=== PATIENT | male | born 1980 ===

== ENCOUNTER 2020-01-09 15:09 | Emergency (ER) | payer SELFPAY | END 2020-01-09 15:32 | disposition left against medical advice (07) | LOC: ER 16:31 | DX: Z53.21 Procedure and treatment not carried out due to patient leaving prior to being seen by health care provider (principal) | CPT/HCPCS: 99281 ==

== ENCOUNTER 2020-03-03 18:13 | Emergency (ER) | payer SELFPAY ==
[2020-03-03 18:21] VITALS: BP 139/81; PULSE 98; RESP 20; TEMP 36.8; O2SAT 97; BMI 25.7
--- NOTE | 2020-03-03 18:30 | ED_ITS ---
HPI - Male Genitourinary General: Chief complaint: Urogenital-Male Stated complaint: kidney pain/possibly stone Time Seen by Provider: 03/03/20 18:25 Source: patient Mode of arrival: ambulatory Limitations: no limitations History of Present Illness: HPI Narrative: Patient comes in today with complaints of left flank pain starting this afternoon. Patient was unable to control the pain. 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 Patient states his last kidney stone was over a year ago. Patient denies any routine medications or chronic medical problems. Location: left flank Review of Systems General: Reports: 10 or more systems reviewed and unremarkable except in HPI and below : Reports: flank pain Physical Exam Const: COMMON NORMALS: no acute distress and patient oriented x3 GENERAL APPEARANCE: cooperative HENMT: COMMON NORMALS: normocephalic and Normal external nose present HEAD & SCALP: normal to inspection and normocephalic NOSE: Normal external nose present MOUTH: Normal oral and palatal mucosa present THROAT: posterior oropharynx normal Eye: GENERAL EYE: appearance normal, both eyes and all related structures Neck/C-Spine: COMMON NORMALS: full ROM Lymph: LYMPHATIC: no lymphadenopathy noted Chest: COMMONS NORMALS: normal inspection of the chest Resp: COMMON NORMALS: normal respiratory effort EFFORT & INSPECTION: Yes able to speak in complete sentences Cardio: COMMON NORMALS: regular rate and regular rhythm RATE: regular rate RHYTHM: regular rhythm GI: COMMON NORMALS: non-tender : BLADDER/KIDNEY EXAM: Yes CVA tenderness on the left Back/Pelvis: COMMON NORMALS: thoracic and lumbar spine normal to inspection GENERAL BACK: Yes CVA tenderness Extremity: COMMON NORMALS: normal to inspection Neuro: COMMON NORMALS: patient oriented x3 and moves all extremities Psych: COMMON NORMALS: mental status grossly normal and cooperative Skin: COMMON NORMALS: no rashes or lesions noted GENERAL SKIN EXAM: no rashes or lesions noted Course Vital Signs: Vital signs: Vital Signs Temperature 98.7 F 03/03/20 19:01 Pulse Rate 88 03/03/20 19:01 Respiratory Rate 22 H 03/03/20 19:11 Blood Pressure 124/71 03/03/20 19:01 Pulse Oximetry 96 03/03/20 19:11 MDM - Male MDM Narrative: Medical decision making narrative: Patient came in today with left flank pain radiating into the groin. Patient does have a history of kidney stones. On exam patient appears to be in pain. Respirations were even lungs are clear to auscultation. Skin is warm and dry. Differential diagnosis includes but not limited to renal colic, constipation, dehydration. Patient was medicated with 100 mcg of fentanyl and ketorolac for pain. Patient was covered with ondansetron and Benadryl for history of opiate itching. Patient did have relief of discomfort. Patient appears well otherwise. Laboratory values are unremarkable. Patient had blood in the urine. CT scan of the abdomen and pelvis noted no hydronephrosis or obstructing kidney stones. Patient does have multiple stones in bilateral kidneys. Reviewed exam with patient with recommendations for treatment and follow-up. Patient reported understanding agreed to plan. Lab Data: Labs: Lab Results 03/03/20 03/03/20 03/03/20 Range/Units 18:31 18:56 18:56 WBC 6.8 (4.0-10.0) 10^3/ uL RBC 4.54 (4.1-5.3) 10^6/u L Hgb 14.1 (11.7-16.6) g/dL Hct 42.1 (42.0-52.0) % MCV 92.7 (80-94) fL MCH 31.1 (28.0-34.0) pg MCHC 33.5 (30.0-36.0) g/dL RDW 12.5 (12.1-15.1) % Plt Count 255 (130-400) 10^3/c mm MPV 10.3 (7.4-10.4) fL Neut % (Auto) 31.8 % Lymph % (Auto) 54.7 % [place] % (Auto) 8.1 % Eos % (Auto) 4.6 % Baso % (Auto) 0.7 % Neut # (Auto) 2.14 (1.8-7.7) 10^3/u L Lymph # (Auto) 3.7 (0.8-4.8) 10^3/u L [place] # (Auto) 0.6 (0.2-0.9) 10^3/u L Eos # (Auto) 0.3 (0.0-0.8) 10^3/u L Baso # (Auto) 0.1 (0.0-0.1) 10^3/u L Nucleated RBC % (a uto) 0 % Nucleated RBCs # 0.0 /100WBC Sodium 139 (136-145) mmol/L Potassium 3.9 (3.5-5.1) mmol/L Chloride 104 (98-107) mmol/L Carbon Dioxide 25 (22-29) mmol/L Anion Gap 13.9 (5-19) BUN 15 (6-20) mg/dL Creatinine 1.0 (0.7-1.2) mg/dL GFR Calculation 83.6 L (90-130) mL/min Glucose 115 (65-115) mg/dL Calculated Osmolal ity 290 (285-295) mOsm/k g Calcium 9.4 (8.5-10.5) mg/dL Urine Color Yellow (Yellow) Urine Appearance Sl hazy (CLEAR) Urine pH 5 (5-7) Ur Specific Gravit y 1.025 (1.005-1.030) Urine Protein Trace (Negative) Urine Glucose (UA) Norm (Normal) Urine Ketones 1+ H (Negative) Urine Blood 3+ H (Negative) Urine Nitrate Negative (Negative) Urine Bilirubin Neg (Negative) Urine Urobilinogen Norm (Negative) mg/dL Ur Leukocyte [place] ase Trace H (Negative) Urine RBC 80-100 H (0-2) /hpf Urine WBC 0-4 H (0-5) /hpf Ur Squamous Epith Cells Rare (0-5) /hpf Amorphous Sediment Not Reportable Urine Bacteria Trace (NONE) /hpf Urine Mucus Trace /hpf Discharge Plan Discharge Patient Disposition: Home Clinical Impression: Bilateral renal stones Condition: Stable Prescriptions: New ondansetron HCl 4 mg tablet 4 mg PO Q8H PRN (Reason: nausea and vomiting) Qty: 7 RF: 0 ketorolac 10 mg tablet 10 mg PO Q6H 4 Days Qty: 16 RF: 0 Discharge Orders: Discharge Order (Routine); Ordered 03/03/20 Ordered By: Anmol Grimm Discharge Diet: Usual diet Discharge Activity: Increase activity as tolerated Patient Instructions: Renal Colic (ED) Activity Restrictions/Additional Instructions: Drink plenty of fluids. No signs of obstructing stones. Monitor for signs of infection like high fever or worsening symptoms. Follow-up with primary care as needed. Return to the emergency department for new concerns. Coding Level of Care Code ED Slitter Processed Film for Hollyg Fwd Exam Comprehensive
[2020-03-03 18:53] LABS: Add Urine Microscopic? YES; Bilirubin Urine Neg (Negative); Blood Urine 3+ (Negative); Glucose Urine UA Norm (Normal); Ketones Urine 1+ (Negative); Leukocyte Esterase Urine Trace (Negative); Nitrate Urine Negative (Negative); Protein Urine Trace (Negative); Specific Gravity, Urine 1.025 (1.005-1.030); Urine Appearance SL Hazy (CLEAR); Urine Color Yellow (Yellow); Urobilinogen Urine Norm (Negative); pH Urine 5 (5-7)
[2020-03-03 18:54] LABS: Bacteria Urine TRACE /hpf; Squamous Epithelial Cell Urine RARE /hpf (0-5); WBC Urine 0-4 /hpf (0-5)
[2020-03-03 18:55] LABS: Add Urine Culture? Yes; Mucus Urine TRACE /hpf; RBC Urine 80-100 /hpf (0-2)
[2020-03-03 19:01] VITALS: BP 124/71; PULSE 88; RESP 18; TEMP 37.1; O2SAT 96
[2020-03-03 19:03] LABS: Basophils # 0.1 10^3/uL (0.0-0.1); Basophils % 0.7 %; Eosinophils # 0.3 10^3/uL (0.0-0.8); Eosinophils % 4.6 %; Hematocrit 42.1 % (42.0-52.0); Hemoglobin 14.1 g/dL (11.7-16.6); Lymphocytes # 3.7 10^3/uL (0.8-4.8); Lymphocytes % 54.7 %; Mean Corpuscular HGB Conc 33.5 g/dL (30.0-36.0); Mean Corpuscular Hemoglobin 31.1 pg (28.0-34.0); Mean Corpuscular Volume 92.7 fL (80-94); Mean Platelet Volume 10.3 fL (7.4-10.4); Monocytes # 0.6 10^3/uL (0.2-0.9); Monocytes % 8.1 %; Neutrophils # 2.14 10^3/uL (1.8-7.7); Neutrophils % 31.8 %; Nucleated Red Blood Cells % 0 %; Platelet Count 255 10^3/cmm (130-400); Red Blood Count 4.54 10^6/uL (4.1-5.3); Red Cell Distribution Width 12.5 % (12.1-15.1); White Blood Count 6.8 10^3/uL (4.0-10.0)
[2020-03-03] MEDS: ketorolac 30 mg/mL INJ 15 MG IVP ×2 (19:10→20:38)
[2020-03-03] MEDS: ondansetron 2 mg/ML SDV 2 mL 4 MG IVP (19:10)
[2020-03-03 19:11] VITALS: RESP 22; O2SAT 96
[2020-03-03] MEDS: fentaNYL 50 mcg/mL INJ 2mL 100 MCG IVP (19:11)
[2020-03-03 19:19] LABS: Anion Gap 13.9 (5-19); Blood Urea Nitrogen 15 mg/dL (6-20); Calcium 9.4 mg/dL (8.5-10.5); Carbon Dioxide 25 mmol/L (22-29); Chloride 104 mmol/L (98-107); Glomerular Filtration Rate 83.6 mL/min (90-130); Glucose 115 mg/dL (65-115); Osmolality Calculated 290 mOsm/kg (285-295); Potassium 3.9 mmol/L (3.5-5.1); Sodium 139 mmol/L (136-145)
[2020-03-03] MEDS: sodium chloride 0.9% 500 ML 999 ML IV (19:23)
[2020-03-03] MEDS: diphenhydrAMINE 50 mg/mL SDV 1mL 12.5 MG IVP (19:29)
--- NOTE | 2020-03-03 19:42 | CTR_ITS ---
PROCEDURE INFORMATION: Exam: CT Abdomen And Pelvis Without Contrast Exam date and time: 03/03/2020 8:07 PM Age: 39 years old Clinical indication: Abdominal pain; Left; Prior surgery; Surgery date: 6+ months; Surgery type: Gb, appy; Patient HX: C/O L flank pain w gross hematuria - HX of stones; Additional info: Left flank pain TECHNIQUE: Imaging protocol: Computed tomography of the abdomen and pelvis without contrast. Radiation optimization: All CT scans at this facility use at least one of these dose optimization techniques: automated exposure control; mA and/or kV adjustment per patient size (includes targeted exams where dose is matched to clinical indication); or iterative reconstruction. COMPARISON: No relevant prior studies available. RADIATION DOSE METRICS: Total DLP (mGy-cm): 1111.58 FINDINGS: Lungs: There is subpleural atelectasis of the dependent portions of the lungs. Liver: Unremarkable.No mass. Gallbladder and bile ducts: Normal. No calcified stones. No ductal dilation. Pancreas: Normal. No ductal dilation. Spleen: Normal. No splenomegaly. Adrenals: Normal. No mass. Kidneys and ureters: There is no evidence of hydronephrosis. There is bilateral punctate nephrolithiasis. No calculi are identified in the ureters or bladder. Stomach and bowel: There is no evidence of intestinal perforation or obstruction. There is no evidence of colitis/diverticulitis. Appendix: The appendix is not definitively identified. However, there is no CT evidence of a right lower quadrant inflammatory process. Intraperitoneal space: Unremarkable. No free air. No significant fluid collection. Vasculature: There are numerous benign phleboliths in the pelvis. Lymph nodes: Unremarkable.No enlarged lymph nodes. Urinary bladder: There is nonspecific bladder wall thickening. This may be related to incomplete distention. Reproductive: Unremarkable as visualized. Bones/joints: There is a left-sided transitional lumbosacral junction. There is no acute bony abnormality. Soft tissues: Unremarkable. CT/CT kidney stone 14218 IMPRESSION: 1. Bilateral nephrolithiasis. No hydronephrosis or obstructing calculi. 2. No bowel thickening or inflammatory changes. Radiation Dose CTDIVOL = (mGy): DLP = 1111.58 (mGy-cm)
== END 2020-03-03 21:06 | disposition home or self-care (01) ==
PROVIDERS: Emergency Provider Nurse Practitioner Family
DX: N20.0 Calculus of kidney (principal)
CPT/HCPCS: 12345; 74176; 80048; 81001; 85025; 87086; 96374; 96375; 96376; 99283; 99284; J1200; J1885; J2405; J3010; J7040